=== PATIENT | male | born 1965 | race Caucasian/White ===

== ENCOUNTER 2023-02-14 16:41 | Emergency (ER) | payer OTHER ==
[~2023-02-14] VITALS: Ht 195.6 cm; Wt 97.5 kg
[2023-02-14 16:52] VITALS: BP 168/88
== END 2023-02-14 18:09 | disposition home or self-care (01) ==
LOC: ER 16:41
DX: Z48.02 Encounter for removal of sutures (principal); Z89.422 Acquired absence of other left toe(s)
CPT/HCPCS: 99281